=== PATIENT | female | born 1995 | race Caucasian/White ===

== ENCOUNTER 2017-02-07 09:12 | Inpatient (IN) | payer BC, OTHER ==
--- NOTE | 2017-02-07 15:38 | NUR ---
02/07/17 1538 Brittni Dey 1520-PATIENT ARRIVED TO ROOM 106 FOR PACU AWAKE AND ALERT DENIES PAIN AND NAUSEA. SPINAL LEVEL AT T8. RA O2 SAT 94% DAD AND BABY AT BEDSIDE. FUNDUS 1 BELOW UMBILICUS FIRM LIGHT RUBRA DRAINAGE. IV TO LEFT HAND INFUSING WITH LR AND 20 PITOCIN.
[2017-02-08] MEDS ORDERED: PRENATAL 19 TA1 EAC1 PO (05:28)
--- NOTE | 2017-02-08 08:13 | PR ---
[facility] [address] [facility] [place], [place] [address] Signed PP Progress Notes Datetime Report Generated by DILCIA: 02/08/2017 08:13 SUBJECTIVE: [id number] Pain: Within normal limits Nausea/Vomiting: Denies Flatus: No Vital Signs: [id number] Vital Signs: Reviewed; Within Normal Limits EXAM: [id number] Cardiovascular: Not Done Respiratory: Not Done Abdomen/Uterus: Abnormal Lochia: Normal Vulva/Perineum: Not Done Breasts: Not Done CVA Tenderness: Not Done Extremities: Normal Incision: Normal Progress: Abnormal Exam Comments: Abdomen with active BS. Fundus firm, sl tender @ U-2. Hemogram pending IMPRESSION/PLAN/PROCEDURES: [id number] Impression: Normal progression Other Impression: Nausea with standing earlier Other Plans: Increase ambulation, check H/H Progress Notes: Doing well though has not really been up as yet. Signing Physician: Amber Cleaning MD CC: *Electronically Signed* 02/08/17812 AMBER CLEANING MD PATIENT NAME: ZOË ESCOBAR PROGRESS NOTE DATE OF : 97 PHYSICIAN: AMBER CLEANING MD RPT #: [id number] REPORT IS CONFIDENTIAL AND NOT TO BE RELEASED WITHOUT AUTHORIZATION
--- NOTE | 2017-02-09 07:28 | PR ---
[facility] [address] [facility] [place], [place] [address] Signed PP Progress Notes Datetime Report Generated by DILCIA: 02/09/2017 07:28 SUBJECTIVE: [id number] Pain: Within normal limits Nausea/Vomiting: Denies Flatus: Yes Bowel Movement: No Vital Signs: [id number] Vital Signs: Reviewed; Within Normal Limits EXAM: [id number] Cardiovascular: Normal Respiratory: Normal Abdomen/Uterus: Abnormal Lochia: Normal Vulva/Perineum: Not Done Breasts: Not Done CVA Tenderness: Not Done Extremities: Normal Incision: Normal Progress: Abnormal Exam Comments: Abdomen with active BS. Fundus firm, NT @ U-1. H/H 10.8/30.8, WBC 10.6, plat 124k IMPRESSION/PLAN/PROCEDURES: [id number] Impression: Normal progression Other Impression: Nausea with standing earlier Plan: Remove hilary; Discharge Other Plans: Increase ambulation, check H/H Procedures: None Progress Notes: Doing well. She is ready for D/C. Signing Physician: Amber Cleaning MD CC: *Electronically Signed* 02/09/17 0728 AMBER CLEANING MD PATIENT NAME: ZOË ESCOBAR PROGRESS NOTE DATE OF : 97 PHYSICIAN: AMBER CLEANING MD RPT #: [id number] REPORT IS CONFIDENTIAL AND NOT TO BE RELEASED WITHOUT AUTHORIZATION
--- NOTE | 2017-02-16 10:07 | OR ---
[facility] [address] [place], [place] [address] Signed DATE OF PROCEDURE: 02/07/17 SURGEON: Amber Cleaning MD. 1ST VACUUM FORMING MACHINE OPERATOR: Dr. Catherine. PREOPERATIVE DIAGNOSIS: Term , labor, and breech presentation. POSTOPERATIVE DIAGNOSIS: Term , labor, and breech presentation. PROCEDURE Primary section with low segment transverse uterine incision. ANESTHESIA: Epidural. ESTIMATED BLOOD LOSS: 750 mL. DRAINS: Sosa catheter. INDICATIONS AND FINDINGS The patient is a 21-year-old female, 1, para 0, admitted at 38 weeks with spontaneous labor and spontaneous rupture of membranes. She labored and became complete, at which point she was identified as having a breech presentation, which was confirmed with ultrasound. She was counseled and she was taken to the operating room for delivery by section for the abnormal presentation. She was delivered of a little girl via lower segment transverse uterine incision as a augusto breech with Apgars of 9 and 9 and weight of 6 pounds 12 ounces. The uterus, tubes, ovaries and placenta appeared normal. DESCRIPTION OF PROCEDURE The patient was prepped and draped in the supine position. A Pfannenstiel skin incision was made and carried down through the fascia with the knife. The incision was extended laterally. The inferior and superior fascial flaps were created. The muscles were sharply divided and the peritoneum opened bluntly and the incision extended superiorly and inferiorly. The Olayinka retractor was then placed. The uterine incision was made at the upper aspect of the peritoneal reflection of the bladder. Uterine wall was scored and entered with the knife and the baby was delivered with the above findings and handed off to the pediatric staff in attendance. The placenta was removed manually. The uterus explored with a lap tape showing no remaining fragments. The edges of the incision were identified and grasped with T clamps and the uterus closed in 2 layers using 0 Monocryl. The first layer was a running locking stitch and the second was a horizontal imbricating stitch. Good hemostasis was noted. The abdomen was then copiously irrigated and Electronically Signed By: AMBER CLEANING MD 02/16/17 1007 PATIENT NAME: ZOË ESCOBAR OPERATIVE REPORT DATE OF : 97 PHYSICIAN: AMBER CLEANING MD REPORT #: [id number] REPORT IS CONFIDENTIAL AND NOT TO BE RELEASED WITHOUT AUTHORIZATION [facility] [address] [place], [place] [address] Signed inspected and the incision was hemostatic. The instruments were removed as was the retractor. The peritoneum was identified and the ACell graft was laid over the incision to aid in healing. The peritoneum was then closed with a running suture of 3-0 Vicryl. The muscles were brought together with interrupted sutures of 0 Vicryl. Bleeding points were controlled with cautery. ACell powder was sprinkled over the muscles to aid in healing. The fascia was clos e d from each angle to the midline with a running suture of 0 Vicryl. The subcutaneous tissue was irrigated and bleeding points controlled with cautery. Interrupted sutures of 3-0 Vicryl were placed in the subcu, approximated the space. The skin was closed with hilary. All sponge and needle counts were correct. She tolerated the procedure well and was taken to the recovery room in good condition. Amber Cleaning MD PJW/Modl /[id number] cc: Ziggy Catherine MD Electronically Signed By: AMBER CLEANING MD 02/16/17 1007 PATIENT NAME: ZOË ESCOABR OPERATIVE REPORT DATE OF : 97 PHYSICIAN: AMBER CLEANING MD REPORT #: [id number] REPORT IS CONFIDENTIAL AND NOT TO BE RELEASED WITHOUT AUTHORIZATION
== END 2017-02-09 18:00 | disposition home or self-care (01) | DRG 766 ==
LOC: FBCO 09:12 → FBC 09:25
PROVIDERS: ADMIT Obstetrics & Gynecology
PROC: 10D00Z1 Extraction of Products of Conception, Low, Open Approach (ICD-10-PCS; principal; 2017-02-07 14:42)
DX: O32.1XX0 Maternal care for breech presentation, not applicable or unspecified (principal); Z3A.38 38 weeks gestation of pregnancy; Z37.0 Single live birth; O77.0 Labor and delivery complicated by meconium in amniotic fluid; O69.81X0 Labor and delivery complicated by cord around neck, without compression, not applicable or unspecified
CPT/HCPCS: 01960; 01961; 36415; 85027; C1763; J0690; J1100; J2274; J2370; J2405; J2590; J3010; J7120

== ENCOUNTER 2021-01-04 19:00 | Inpatient (IN) | payer OTHER ==
[~2021-01-04 19:00] MED LIST: PRENATAL 19 TA1 EAC1 PO
--- NOTE | 2021-01-04 20:33 | NUR ---
PT WAS SWABBED FOR COVID 19
--- NOTE | 2021-01-04 22:29 | NUR ---
01/04/212228 Didi Marrero 220 PT ARRIVED IN PACU WIDE AWAKE WITH NO C/O'S. COUSIN IN ROOM HOLDING BABY. 2209 MOM BREAST FEEDING BABY WITH HELP FROM FBC RN. 2219 MOM HOLDING BABY. FBC RN HELPING WITH BREAST FEEDING. NO C/O'S.
--- NOTE | 2021-01-05 12:58 | PR ---
[facility] [address] [facility] [place], [place] [address] Signed PP Progress Notes Datetime Report Generated by CPN: 01/05/2021 12:57 SUBJECTIVE: [id number] Pain: Within Normal Limits Nausea/Vomiting: Denies Flatus: No Vital Signs: [id number] Vital Signs: Reviewed; Within Normal Limits EXAM: Ongoing Cardiovascular: Normal Respiratory: Normal Abdomen/Uterus: Abnormal Lochia: Normal Vulva/Perineum: Not Done Breasts: Not Done CVA Tenderness: Not Done Extremities: Normal Incision: Normal Progress: Normal Exam Comments: Abdomen with active BS. Fundus firm, NT @ U-2. H/H 10.8/31.7, WBC 12.4, plat 130k IMPRESSION/PLAN/PROCEDURES: [id number] Impression: Normal Progression Other Plans: ambulate, shower Procedures: None Progress Notes: Doing well. Will increase activity. Signing Physician: Amber Cleaning MD Copies: ~ *Electronically Signed* 01/05/21 1257 AMBER CLEANING MD PATIENT NAME: ZOË ESCOBAR PROGRESS NOTE DATE OF : 97 PHYSICIAN: AMBER CLEANING MD RPT #: [id number] REPORT IS CONFIDENTIAL AND NOT TO BE RELEASED WITHOUT AUTHORIZATION
--- NOTE | 2021-01-06 07:52 | PR ---
[facility] [address] [facility] [place], [place] [address] Signed PP Progress Notes Datetime Report Generated by CPN: 01/06/2021 07:52 SUBJECTIVE: [id number] Pain: Within Normal Limits Pain Comments: lots of gas pain and cramping Nausea/Vomiting: Denies Flatus: Yes Vital Signs: [id number] Vital Signs: Reviewed; Within Normal Limits EXAM: Ongoing Cardiovascular: Normal Respiratory: Normal Abdomen/Uterus: Abnormal Lochia: Normal Vulva/Perineum: Not Done Breasts: Not Done CVA Tenderness: Not Done Extremities: Normal Incision: Normal Progress: Normal Exam Comments: Abdomen with active BS. Soft. Fundus firm, NT @ U-2. IMPRESSION/PLAN/PROCEDURES: [id number] Impression: Normal Progression Other Plans: ambulate, warm liquids, Kpad Procedures: None Progress Notes: Doing well though had bad night with gas pain and cramping. Encouraged ambulation and warm liquids. She will consider D/C this pm. Signing Physician: Amber Cleaning MD Copies: ~ *Electronically Signed* 01/06/21 0752 AMBER CLEANING MD PATIENT NAME: ZOË ESCOBAR PROGRESS NOTE DATE OF : 97 PHYSICIAN: AMBER CLEANING MD RPT #: [id number] REPORT IS CONFIDENTIAL AND NOT TO BE RELEASED WITHOUT AUTHORIZATION
--- NOTE | 2021-01-07 06:53 | PR ---
[facility] [address] [facility] [place], [place] [address] Signed PP Progress Notes Datetime Report Generated by CPN: 01/07/2021 06:53 SUBJECTIVE: [id number] Pain: Within Normal Limits Pain Comments: gas pain better. Nausea/Vomiting: Denies Flatus: Yes Vital Signs: [id number] Vital Signs: Reviewed; Within Normal Limits EXAM: Ongoing Cardiovascular: Not Done Respiratory: Not Done Abdomen/Uterus: Abnormal Lochia: Normal Vulva/Perineum: Not Done Breasts: Not Done CVA Tenderness: Not Done Extremities: Normal Incision: Normal Progress: Normal Exam Comments: Abdomen with active BS. Fundus firm, NT @ U-2. IMPRESSION/PLAN/PROCEDURES: [id number] Impression: Normal Progression Plan: Remove Arpita; Discharge Other Plans: ambulate, warm liquids, Kpad Procedures: None Progress Notes: Doing well. Gas pain improved. She is ready for D/C. Signing Physician: Amber Cleaning MD Copies: ~ *Electronically Signed* 01/07/21 0653 AMBER CLEANING MD PATIENT NAME: ZOË ESCOBAR DENZEL PROGRESS NOTE DATE OF : 97 PHYSICIAN: AMBER CLEANING MD RPT #: [id number] REPORT IS CONFIDENTIAL AND NOT TO BE RELEASED WITHOUT AUTHORIZATION
--- NOTE | 2021-01-14 09:50 | OR ---
[facility] [address] [place], [place] [address] Signed DATE OF OPERATION: 01/04/2021 SURGEON: Shannan Cleaning MD MACHINE PAN GREASER: Hua. PREOPERATIVE DIAGNOSES: Term , previous section, active labor. POSTOPERATIVE DIAGNOSES: Term , previous section, active labor, delivered. PROCEDURE: Repeat section with low segment transverse uterine incision. ANESTHESIA: Spinal. ESTIMATED BLOOD LOSS: 500 mL. DRAINS: Sosa catheter. INDICATIONS AND FINDINGS: The patient is a 25-year-old female, 2, para 1, admitted at 38 and 3/7th weeks in active labor. She had a previous section and was scheduled for later this week. At the time of surgery, she was delivered of a little boy via lower segment transverse uterine incision from the ROT position with Apgars of 8 and 9 and weight of 7 pounds 4 ounces. The uterus, tubes, ovaries, and placenta were normal. There were omental adhesions to the peritoneum, which were lysed at the time of surgery. DESCRIPTION OF PROCEDURE: The patient was prepped and draped in the supine position. A repeat Pfannenstiel skin incision was made and carried down to the fascia. The fascial incision was extended laterally. The inferior and superior fascial flaps were then created. The muscles were bluntly divided and the peritoneum opened sharply and the incision extended superiorly and inferiorly. The omental adhesions were divided with cautery as these were mostly filmy. A few were divided after grasping with hemostats and cauterizing as well as free Electronically Signed By: SHANNAN CLEANING MD 01/14/21 0950 PATIENT NAME: ZOË ESCOBAR OPERATIVE REPORT DATE OF : 97 REPORT #: [id number] PHYSICIAN: SHANNAN CLEANING MD PCP: SHANNAN CLEANING MD REPORT IS CONFIDENTIAL AND NOT TO BE RELEASED WITHOUT AUTHORIZATION [facility] [address] [place], [place] [address] Signed ties of 2-0 chromic. Following this, the area was clear and the Olayinka retractor was placed. The uterine incision was made at the upper aspect of the peritoneal reflection. The baby was delivered with the above findings and handed off to the pediatric staff in attendance. The placenta was removed manually. The uterus explored with a lap tape assuring no remaining fragments. The edges of the incision were identified and the uterus closed in 2 layers using 0 Monocryl. The first layer was a running locking stitch and the second was a vertical imbricating stitch. Bleeding points on the peritoneum were controlled with cautery. The abdomen was then copiously irrigated and inspected, and good hemostasis was noted. The retractor was removed and the peritoneum identified. ACell graft was laid over the lower segment to aid in healing. The peritoneum was then re-identified and was closed in a running suture of 3-0 Vicryl. The muscles were brought together with interrupted sutures of 0 Vicryl. Bleeding points were controlled with cautery. The abdomen was irrigated and inspected, and good hemostasis was noted. ACell powder was sprinkled over the muscles to aid in healing. The fascia was then closed from each angle to the midline with a running suture of 0 Vicryl. The subcu space was evaluated and bleeding points were controlled with cautery. This area was irrigated, inspected, and the deep space closed with interrupted sutures of 3-0 Vicryl. The skin was closed with hilary. The patient was taken to the recovery room in good condition. All sponge and needle counts were correct. She tolerated the procedure well. MD MIGUEL Muir/LAYLAL /[id number] cc: Brain Hua DO Copies: BRAIN HUA DO ~ Electronically Signed By: SHANNAN CLEANING MD 01/14/21 0950 PATIENT NAME: ZOË ESCOBAR OPERATIVE REPORT DATE OF : 97 REPORT #: [id number] PHYSICIAN: SHANNAN CLEANING MD PCP: SHANNAN CLEANING MD REPORT IS CONFIDENTIAL AND NOT TO BE RELEASED WITHOUT AUTHORIZATION
== END 2021-01-07 09:55 | disposition home or self-care (01) | DRG 788 ==
LOC: FBCO 19:00 → FBC 19:55
PROVIDERS: ADMIT Obstetrics & Gynecology; ATTEND Obstetrics & Gynecology
PROC: 10D00Z1 Extraction of Products of Conception, Low, Open Approach (ICD-10-PCS; principal; 2021-01-04 21:00)
DX: O34.211 Maternal care for low transverse scar from previous cesarean delivery (principal); O64.0XX0 Obstructed labor due to incomplete rotation of fetal head, not applicable or unspecified; Z3A.38 38 weeks gestation of pregnancy; Z37.0 Single live birth
CPT/HCPCS: 01961; 85027; A9270; J0690; J2001; J2274; J2405; J2590; J7121; U0003